=== PATIENT | male | born 1950 | race Caucasian/White ===

== ENCOUNTER 2016-10-22 06:03 | Day surgery (SDC) | payer OTHER ==
[~2016-10-22] VITALS: Ht 160 cm; Wt 75.9 kg
[2016-10-22 06:51] VITALS: Ht 160 cm; Wt 75.9 kg
[2016-10-22] MEDS ORDERED: ZANTAC (07:02)
[2016-10-22] MEDS ORDERED: LISINOPRIL (07:02)
[2016-10-22] MEDS ORDERED: COUMADIN (07:02)
[2016-10-22 07:39] VITALS: BP 155/54; RESP 14
[2016-10-22] MEDS ORDERED: PROPOFOL 40 ML ONE (07:48)
--- NOTE | 2016-10-22 08:32 | OPPN ---
Date/Time of Note Date/Time of Note DATE: 10/22/16 TIME: 08:31 Operative Report Preoperative Diagnosis Screening Postoperative Diagnosis Sigmoid polyp was removed Internal hemorrhoids Operation/Procedure Performed Colonoscopy and biopsy Provider: LIVIA STOREY MD Anesthesia Type: MAC Estimated blood loss: none Transfusion Required: no Specimens Sigmoid polyp biopsy Grafts/Implants: none Complications: no LIVIA STOREY MD Oct 22, 2016 08:32
[2016-10-22 08:45] VITALS: BP 130/75; RESP 14
--- NOTE | 2016-10-22 10:09 | GILP ---
DATE OF PROCEDURE: 10/22/2016 PROCEDURE PERFORMED: Colonoscopy and biopsy. SURGEON: Aditya Cespedes MD. PREOPERATIVE DIAGNOSIS: Screening colonoscopy. POSTOPERATIVE DIAGNOSES: 1. Colonoscopy all the way to the cecum. 2. Sigmoid colon polyp was removed using the biopsy forceps. 3. Internal hemorrhoids. INDICATION: Mr. Rajat Gutierrez is a 65-year-old male patient who was scheduled for screening colonoscopy. The procedure and possible complications were well explained to the patient. He understood and consented to the procedure. DESCRIPTION OF PROCEDURE: Under the influence of anesthesia, the colonoscope was carefully introduced in the rectum, and under direct vision, it was advanced all the way to the cecum. FINDINGS: The patient had a small sigmoid colon polyp, and it was removed using biopsy forceps. The patient had internal hemorrhoids. He tolerated the procedure very well. There was no complication from the procedure. At the end of procedure, he was awake with stable vital signs, and he was discharged home in care of his family. IMPRESSION: 1. Colonoscopy all the way to the cecum. 2. Sigmoid colon polyp was removed using the biopsy forceps. 3. Internal hemorrhoids. PLAN: 1. Await histopathology report. 2. Next screening colonoscopy in 5 years. Dictated By: MD DRAGAN Betancur/debbie/garrison /Document#: [id number]
== END 2016-10-22 11:21 | disposition home or self-care (01) ==
LOC: GIL 06:03
PROVIDERS: ATTEND Internal Medicine Gastroenterology
DX: Z12.11 Encounter for screening for malignant neoplasm of colon (principal); D12.5 Benign neoplasm of sigmoid colon; K64.8 Other hemorrhoids; I10 Essential (primary) hypertension; E78.5 Hyperlipidemia, unspecified
CPT/HCPCS: 45380; 88305; Z7610